=== PATIENT | male | born 1950 | race Caucasian/White ===

== ENCOUNTER 2016-08-30 10:19 | Inpatient (IN) | payer MEDICARE, MEDICAID ==
--- NOTE | 2016-08-30 10:34 | ER Document Report ---
ED Medical Screen (RME) - General Chief Complaint: Abdominal Pain Stated Complaint: ABDOMINAL PAIN Time seen by provider: 10:31 Mode of Arrival: Ambulatory Information source: Patient Notes: 66-year-old male presents to ED for upper abdominal pain that is heavy and keep any food down for 2 weeks off and on. Yesterday he was able to eat a piece of cheese and bread and that was all he was able to keep down. When pain is present it's very sharp pain is from the center of his upper abdomen to the right still has his gallbladder has a history of a stroke in 2012 in has a history of blood pressure and cholesterol smokes a pack a day I have greeted and performed a rapid initial assessment of this patient. A comprehensive ED assessment and evaluation of the patient, analysis of test results and completion of medical decision making process will be conducted by an additional ED providers. TRAVEL OUTSIDE OF THE [place] IN LAST 30 DAYS: No - Related Data Allergies/Adverse Reactions: aspirin [Aspirin] Allergy (Intermediate, Verified 07/31/13 17:09) codeine [Codeine] Allergy (Intermediate, Verified 07/31/13 17:09) Penicillins Allergy (Intermediate, Verified 07/31/13 17:09) Past Medical History - Social History Family history: None - Past Medical History Cardiac Medical History: Reports: Hx Hypercholesterolemia, Hx Hypertension Pulmonary Medical History: Reports: Hx COPD, Hx Pneumonia Neurological Medical History: Reports: Hx Cerebrovascular Accident - Immunizations Hx Diphtheria, Pertussis, Tetanus Vaccination: - unk
[2016-08-30 11:04] LABS: ABSOLUTE BASOPHILS # (AUTO) 0.1 10^3/uL (0.0-0.2); ABSOLUTE EOSINOPHILS # (AUTO) 0.3 10^3/uL (0.0-0.6); ABSOLUTE LYMPHOCYTES (AUTO) 1.3 10^3/uL (0.5-4.7); ABSOLUTE MONOCYTES (AUTO) 0.9 10^3/uL (0.1-1.4); ABSOLUTE NEUT (AUTO) 13.9 10^3/uL (1.7-8.2); BASOPHILS % (AUTO) 0.3 % (0-2); EOSINOPHILS % (AUTO) 1.8 % (0-6); HEMOGLOBIN 16.3 g/dL (13.5-17.0); HGB HCT DIFFERENCE -0.1; LYMPHOCYTES % (AUTO) 7.9 % (13-45); MEAN CORPUSCULAR HEMOGLOBIN 32.8 pg (27.0-33.4); MEAN CORPUSCULAR HGB CONC 33.3 g/dL (32.0-36.0); MEAN CORPUSCULAR VOLUME 99 fl (80-97); MONOCYTES % (AUTO) 5.6 % (3-13); RED BLOOD COUNT 4.98 10^6/uL (4.35-5.55); RED CELL DISTRIBUTION WIDTH 14.2 % (11.5-14.0); SEGMENTED NEUTROPHILS % (AUTO) 84.4 % (42-78); WHITE BLOOD COUNT 16.4 10^3/uL (4.0-10.5)
[2016-08-30 11:22] LABS: ALANINE AMINOTRANSFERASE 24 U/L (21-72); ALBUMIN 4.3 g/dL (3.5-5.0); ALKALINE PHOSPHATASE 118 U/L (38-126); ANION GAP 17 (5-19); ASPARTATE AMINO TRANSFERASE 18 U/L (17-59); BILIRUBIN,TOTAL 0.8 mg/dL (0.2-1.3); BLOOD UREA NITROGEN 36 mg/dL (7-20); CALCIUM 9.8 mg/dL (8.4-10.2); CARBON DIOXIDE 32 mmol/L (22-30); CHLORIDE 97 mmol/L (98-107); CREATINE KINASE 42 U/L (55-170); CREATININE RESULT 1.79 mg/dL (0.52-1.25); GLUCOSE 117 mg/dL (75-110); MAGNESIUM 2.1 mg/dL (1.6-2.3); POTASSIUM 3.9 mmol/L (3.6-5.0); SODIUM 145.6 mmol/L (137-145); TOTAL PROTEIN 7.2 g/dL (6.3-8.2)
--- NOTE | 2016-08-30 11:37 | ER Document Report ---
ED General - General Chief Complaint: Chest Pain Stated Complaint: ABDOMINAL PAIN Mode of Arrival: Ambulatory Notes: This is a 66-year-old male with history of COPD, CVA who presents complaining of 2 weeks of epigastric and right upper quadrant abdominal pain radiating into lower chest. It is associated with nausea and vomiting. He has been unable to keep down fluids. He had one bowel movement in the last 4 days which is described as normal, formed stool with no blood or mucus. He has not noticed any acholic stools. He has not noticed any changes in his urination. He does note a 20 pound weight loss. He normally is a daily drinker but has been unable to drink or smoke. TRAVEL OUTSIDE OF THE [place] IN LAST 30 DAYS: No - Related Data Allergies/Adverse Reactions: aspirin [Aspirin] Allergy (Intermediate, Verified 07/31/13 17:09) codeine [Codeine] Allergy (Intermediate, Verified 07/31/13 17:09) Penicillins Allergy (Intermediate, Verified 07/31/13 17:09) Past Medical History - General Information source: Patient - Social History Smoking Status: Current Every Day Smoker Frequency of alcohol use: Heavy Drug Abuse: None Lives with: Alone, Other - Accompanied by a friend in the ER Family History: Reviewed & Not Pertinent Patient has suicidal ideation: No Patient has homicidal ideation: No - Past Medical History Cardiac Medical History: Reports: Hx Hypercholesterolemia, Hx Hypertension Pulmonary Medical History: Reports: Hx COPD, Hx Pneumonia Neurological Medical History: Reports: Hx Cerebrovascular Accident Renal/ Medical History: Denies: Hx Peritoneal Dialysis - Immunizations Hx Diphtheria, Pertussis, Tetanus Vaccination: - unk Review of Systems - Review of Systems Constitutional: denies: Fever EENT: denies: Throat pain Cardiovascular: Chest pain. denies: Palpitations, Syncope Respiratory: Cough. denies: Short of breath Gastrointestinal: Abdominal pain, Nausea, Vomiting, Constipation. denies: Diarrhea Musculoskeletal: denies: Leg swelling Skin: denies: Rash Hematologic/Lymphatic: denies: Swollen glands Neurological/Psychological: denies: Weakness, Numbness, Tingling Physical Exam - Vital signs Vitals: Temp Pulse Resp BP Pulse Ox 97.3 F 74 16 114/71 97 08/30/16 10:31 08/30/16 10:31 08/30/16 10:31 08/30/16 10:31 08/30/16 10:31 - General General appearance: Alert, Other - Appears somewhat older than stated age In distress: None - HEENT Head: Normocephalic Pupils: PERRL Mouth/Lips: Normal Mucous membranes: Dry Pharynx: Normal Neck: Normal - Respiratory Respiratory status: No respiratory distress, Other - Prolonged expiratory phase Breath sounds: Other - Few scattered end expiratory wheezes, no rhonchi or rales Chest palpation: Normal - Cardiovascular Rhythm: Regular - Abdominal Inspection: Normal Bowel sounds: Normal Tenderness: Tender - Epigastric and right upper quadrant tenderness, positive hepatomegaly - Back Back: Normal - Extremities General upper extremity: Normal inspection General lower extremity: Normal inspection - Neurological Neuro grossly intact: Yes Orientation: AAOx4 Motor strength normal: LUE, RUE, LLE, RLE - Psychological Associated symptoms: Normal affect - Skin Skin Temperature: Warm Skin Moisture: Dry Skin Color: Normal Course - Re-evaluation Re-evalutation: 08/30/16 13:35 lipase significantly elevated. - Vital Signs Vital signs: Temp Pulse Resp BP Pulse Ox 97.3 F 74 24 H 139/83 H 97 08/30/16 10:31 08/30/16 10:31 08/30/16 13:39 08/30/16 12:53 08/30/16 13:39 - Laboratory Result Diagrams: 08/30/16 10:34 08/30/16 10:34 Laboratory results interpreted by me: 08/30/16 08/30/16 10:34 10:34 WBC 16.4 H MCV 99 H RDW 14.2 H Seg Neutrophils % 84.4 H Lymphocytes % 7.9 L Absolute Neutrophils 13.9 H Sodium 145.6 H Chloride 97 L Carbon Dioxide 32 H BUN 36 H Creatinine 1.79 H Est GFR ( Amer) 46 L Est GFR (Non-Af Amer) 38 L Glucose 117 H Creatine Kinase 42 L Lipase 2895.0 H Discharge - Discharge Clinical Impression: Multiple gallstones Acute pancreatitis Qualifiers: Pancreatitis type: unspecified pancreatitis type Acute pancreatitis complication: unspecified Qualified Code(s): K85.90 - Acute pancreatitis without necrosis or infection, unspecified Condition: Stable Disposition: ADMITTED INPATIENT Admitting Provider: Hospitalist Unit Admitted: [facility]
[2016-08-30] MEDS ORDERED: NORMAL SALINE 1000 ML 1,000 ML IV ONE (14:02)
[2016-08-30] MEDS ORDERED: CIPROFLOXACIN 400 MG/D5W RTU 200 ML IV ONE (14:08)
[2016-08-30] MEDS ORDERED: MORPHINE SULFATE 10 MG/ML INJ IV ONE (14:13)
[2016-08-30] MEDS ORDERED: ONDANSETRON HCL INJ/PF 4 MG/2 ML SDV IV ONE (14:13)
[2016-08-30] MEDS ORDERED: IPRATROPIUM/ALBUTEROL 0.5-2.5 MG/3 ML AMPUL NEB PRN (14:27)
[2016-08-30] MEDS ORDERED: ACETAMINOPHEN 325 MG TABLET PO PRN (14:27)
[2016-08-30] MEDS ORDERED: ONDANSETRON HCL INJ/PF 4 MG/2 ML SDV IV PRN (14:27)
[2016-08-30] MEDS ORDERED: HYDROMORPHONE HCL INJ/PF 2 MG/ML AMPULE IV PRN (14:37)
[2016-08-30] MEDS ORDERED: LORAZEPAM INJ 2 MG/1 ML VIAL IV PRN (14:42)
[2016-08-30] MEDS ORDERED: CIPROFLOXACIN 400 MG/D5W RTU 400 MG/200 ML RTUPB IV ONE (15:15)
--- NOTE | 2016-08-30 15:48 | EKG REPORT ---
SEVERITY:- OTHERWISE NORMAL ECG - SINUS RHYTHM VENTRICULAR PREMATURE COMPLEX : Confirmed by: Stephie Romero 30-Aug-2016 15:47:09
--- NOTE | 2016-08-30 16:37 | PDOC H&P ---
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 He presents to [facility] ED this afternoon with complaints of nausea vomiting and worsening of abdominal pain for the last 2 weeks. He states he was seen by his primary care provider approximately one week ago for the same complaint. He had lab work drawn and no change in medications. He is unaware of what the lab work revealed. Continues to have worsening epigastric pain, anorexia, and vomiting. He denies any diarrhea. Had one normal bowel movement 2 days ago which was formed, he denies any acholic stools. He states his urine has become darker he has noticed. He states he has lost approximately 20 pounds in the last 2 weeks. He states he normally drinks 1-2 cocktails per night. He has been unable to drink or smoke the last several days because of feeling so poorly. He describes pain as sharp and stabbing in nature. He has not found anything to relieve the pain. His friend convinced him to come to the ED today. Past Medical History Cardiac Medical History: Reports: Hyperlipidema, Hypertension Pulmonary Medical History: Reports: Chronic Obstructive Pulmonary Disease (COPD) , Pneumonia EENT Medical History: Reports: None Neurological Medical History: Reports: Ischemic CVA Endocrine Medical History: Reports: None Renal/ Medical History: Reports: None Malignancy Medical History: Reports: None GI Medical History: Reports: None Skin Medical History: Reports: None Psychiatric Medical History: Reports: Alcohol Dependency, Tobacco Dependency Traumatic Medical History: Reports: None Hematology: Reports: None Past Surgical History Past Surgical History: Reports: None Social History Lives with: Alone, Other - Accompanied by a friend in the ER Smoking Status: Current Every Day Smoker Cigarettes Packs Per Day: 1 Last Time Smoked: yesterday Frequency of Alcohol Use: Heavy Amount of Alcoholic Beverages Per Day: 2 mixed drinks per evening, used to have heavy alcohol intake Last Alcohol Use: 09/03/16 Hx Recreational Drug Use: No - Advance Directive Resuscitation Status: Full Code Family History Family History: Hyperlipidemia, Hypertension, Malignancy Parental Family History Reviewed: Yes Children Family History Reviewed: Yes Sibling(s) Family History Reviewed.: Yes Medication/Allergy Home Medications: Clopidogrel Bisulfate [Plavix 75 mg Tablet] 75 mg PO DAILY #0 tablet 09/15/12 Lisinopril [Prinivil 10 mg Tablet] 40 mg PO DAILY #0 tablet 09/15/12 Pravastatin Sodium [Pravachol] 20 mg PO DAILY #0 tablet 09/15/12 Albuterol Sulfate [Ventolin Hfa] 2 puff IH Q4HP PRN #17 gm 07/31/13 Azithromycin [Zithromax 250 mg Tablet] 250 mg PO DAILY #4 tablet 07/31/13 Prednisone [Deltasone 20 mg Tablet] 40 mg PO DAILY #10 tablet 07/31/13 Allergies/Adverse Reactions: aspirin [Aspirin] Allergy (Intermediate, Verified 07/31/13 17:09) codeine [Codeine] Allergy (Intermediate, Verified 07/31/13 17:09) Penicillins Allergy (Intermediate, Verified 07/31/13 17:09) Review of Systems Constitutional: PRESENT: anorexia, weakness Eyes: ABSENT: visual disturbances Ears: ABSENT: hearing changes Cardiovascular: ABSENT: chest pain, dyspnea on exertion, edema, orthropnea, palpitations Respiratory: ABSENT: cough, hemoptysis Gastrointestinal: PRESENT: abdominal pain, bloating, nausea, vomiting Genitourinary: ABSENT: dysuria, hematuria Musculoskeletal: ABSENT: joint swelling Integumentary: ABSENT: rash, wounds Neurological: ABSENT: abnormal gait, abnormal speech, confusion, dizziness, focal weakness, syncope Psychiatric: ABSENT: anxiety, depression, homidical ideation, suicidal ideation Endocrine: ABSENT: cold intolerance, heat intolerance, polydipsia, polyuria Hematologic/Lymphatic: ABSENT: easy bleeding, easy bruising Physical Exam Vital Signs: Temp Pulse Resp BP Pulse Ox 97.3 F 65 14 139/83 H 97 08/30/16 10:31 08/30/16 16:02 08/30/16 16:02 08/30/16 12:53 08/30/16 16:02 General appearance: PRESENT: no acute distress, disheveled, well-developed, well -nourished Head exam: PRESENT: atraumatic, normocephalic Eye exam: PRESENT: conjunctiva pale Ear exam: PRESENT: normal external ear exam Mouth exam: PRESENT: moist, tongue midline Neck exam: ABSENT: carotid bruit, JVD, lymphadenopathy, thyromegaly Respiratory exam: PRESENT: clear to auscultation david. ABSENT: rales, rhonchi, wheezes Cardiovascular exam: PRESENT: RRR. ABSENT: diastolic murmur, rubs, systolic murmur Pulses: PRESENT: normal dorsalis pedis pul Vascular exam: PRESENT: normal capillary refill GI/Abdominal exam: PRESENT: normal bowel sounds, soft. ABSENT: distended, guarding, mass, organolmegaly, rebound, tenderness Rectal exam: PRESENT: deferred Extremities exam: PRESENT: full ROM. ABSENT: calf tenderness, clubbing, pedal edema Neurological exam: PRESENT: alert, awake, oriented to person, oriented to place , oriented to time, oriented to situation, CN II-XII grossly intact. ABSENT: motor sensory deficit Psychiatric exam: PRESENT: appropriate affect, normal mood. ABSENT: homicidal ideation, suicidal ideation Skin exam: PRESENT: dry, intact, warm. ABSENT: cyanosis, rash Results Impressions: Chest X-Ray 08/30/16 10:35 IMPRESSION: Overexpansion the lung sev[place] concerning for COPD. No developing infiltrates. Abdomen Ultrasound 08/30/16 11:30 IMPRESSION: Cholelithiasis. Dilated common bile duct 8.6 mm. Assessment & Plan - Diagnosis (1) Acute pancreatitis Qualifiers: Pancreatitis type: unspecified pancreatitis type Acute pancreatitis complication: unspecified Qualified Code(s): K85.90 - Acute pancreatitis without necrosis or infection, unspecified Is this a current diagnosis for this admission?: YesPlan: Patient will be kept NPO. Aggressively rehydrated. MRCP will be obtained. IV antibiotics per surgialist. Pain control with IV dilaudid prn. IV zofran for nausea and vomiting. (2) Gallstones Is this a current diagnosis for this admission?: YesPlan: Gallbladder noted to be filled with gallstones on ultrasound with mild dilatation of pancreatic duct. Dr Sage saw the patient in consult of ED physician and does not feel patient needs an ERCP. Will follow. (3) Old cerebrovascular accident without late effect Is this a current diagnosis for this admission?: YesPlan: Patient with history of left CVA 2013. No residual effects. On Plavix due to aspirin allergy (4) COPD (chronic obstructive pulmonary disease) Qualifiers: Emphysema type: unspecified Is this a current diagnosis for this admission?: YesPlan: Nebulizers prn. He does not use any scheduled inhalers (5) Tobacco abuse Is this a current diagnosis for this admission?: YesPlan: Nicotine patch prn. Patient counseled on tobacco cessation needs. He is aware (6) Alcohol abuse Is this a current diagnosis for this admission?: YesPlan: Patient states he does not drink more than 1-2 drinks daily. He admits to previous years of heavy alcohol abuse. Will monitor for possible DTs (7) DVT prophylaxis Is this a current diagnosis for this admission?: YesPlan: Teds, heparin subcutanous - Time Time Spent: 50 to 70 Minutes Critical Time spent with patient: 25-34 minutes Smoking Cessation Education: 3 to 10 minutes Medications reviewed and adjusted accordingly: Yes Anticipated discharge: Home
[2016-08-30] MEDS: 1/2 NORMAL SALINE 1,000 ML IV PRN (18:00)
[2016-08-30] MEDS: METRONIDAZOLE 500 MG/NS RTU 100 ML IV SCH (18:15)
--- NOTE | 2016-08-30 18:50 | PDOC CONSULTATION ---
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 He presents to [facility] ED this afternoon with complaints of nausea vomiting and worsening of abdominal pain for the last 2 weeks. He states he was seen by his primary care provider approximately one week ago for the same complaint. He had lab work drawn and no change in medications. He is unaware of what the lab work revealed. Continues to have worsening epigastric pain, anorexia, and vomiting. He denies any diarrhea. Had one normal bowel movement 2 days ago which was formed, he denies any acholic stools. He states his urine has become darker he has noticed. He states he has lost approximately 20 pounds in the last 2 weeks. He states he normally drinks 1-2 cocktails per night. He has been unable to drink or smoke the last several days because of feeling so poorly. He describes pain as sharp and stabbing in nature. He has not found anything to relieve the pain. His friend convinced him to come to the ED today. Surgeon's note: The patient approximately 1:00 today. Patient had no evidence of an acute abdomen. Reviewed imaging studies with Dr. Delgado. I felt clinically the patient was suffering from alcohol related pancreatitis although component of cholecystitis could not be excluded . Past Medical History Cardiac Medical History: Reports: Hyperlipidema, Hypertension Pulmonary Medical History: Reports: Chronic Obstructive Pulmonary Disease (COPD) , Pneumonia EENT Medical History: Reports: None Neurological Medical History: Reports: Ischemic CVA Endocrine Medical History: Reports: None Renal/ Medical History: Reports: None Malignancy Medical History: Reports: None GI Medical History: Reports: None Skin Medical History: Reports: None Psychiatric Medical History: Reports: Alcohol Dependency, Tobacco Dependency Traumatic Medical History: Reports: None Hematology: Reports: None Past Surgical History Past Surgical History: Reports: None, Other - No apparent colonoscopy by report Social History Lives with: Alone, Other - Accompanied by a friend in the ER Smoking Status: Current Every Day Smoker Cigarettes Packs Per Day: 1 Last Time Smoked: yesterday Frequency of Alcohol Use: Heavy Hx Recreational Drug Use: No - Advance Directive Resuscitation Status: Full Code Family History Family History: Reviewed & Not Pertinent Parental Family History Reviewed: Yes Children Family History Reviewed: Yes Sibling(s) Family History Reviewed.: Yes Medication/Allergy Home Medications: Albuterol Sulfate [Ventolin Hfa] 2 puff IH Q4HP PRN 08/30/16 Carvedilol [Carvedilol] 50 mg PO Q12 08/30/16 Clopidogrel Bisulfate [Clopidogrel] 75 mg PO DAILY 08/30/16 Lisinopril [Lisinopril] 40 mg PO DAILY 08/30/16 Pravastatin Sodium [Pravachol] 40 mg PO QHS 08/30/16 Allergies/Adverse Reactions: aspirin [Aspirin] Allergy (Intermediate, Verified 07/31/13 17:09) codeine [Codeine] Allergy (Intermediate, Verified 07/31/13 17:09) Penicillins Allergy (Intermediate, Verified 07/31/13 17:09) Review of Systems Constitutional: PRESENT: as per HPI Nose, Mouth, and Throat: PRESENT: mouth pain Respiratory: PRESENT: dyspnea Neurological: PRESENT: focal weakness, other - Left side Physical Exam Vital Signs: Temp Pulse Resp BP Pulse Ox 97.3 F 65 21 H 125/65 97 08/30/16 10:31 08/30/16 16:02 08/30/16 17:01 08/30/16 17:01 08/30/16 16:02 General appearance: PRESENT: no acute distress Head exam: PRESENT: normocephalic Eye exam: PRESENT: EOMI Ear exam: PRESENT: normal external ear exam Neck exam: PRESENT: full ROM Respiratory exam: PRESENT: clear to auscultation david Cardiovascular exam: PRESENT: RRR Pulses: PRESENT: normal carotid pulses GI/Abdominal exam: PRESENT: other - Some tenderness in the epigastric and right upper quadrant regions; no peritoneal signs no rigidity; I can feel the right lobe of the liver. Rectal exam: PRESENT: deferred Extremities exam: PRESENT: other - No edema Neurological exam: PRESENT: other - Left-sided weakness Results Impressions: Chest X-Ray 08/30/16 10:35 IMPRESSION: Overexpansion the lung sevilla concerning for COPD. No developing infiltrates. Abdomen Ultrasound 08/30/16 11:30 IMPRESSION: Cholelithiasis. Dilated common bile duct 8.6 mm. Assessment & Plan - Diagnosis (1) Acute pancreatitis Qualifiers: Pancreatitis type: unspecified pancreatitis type Acute pancreatitis complication: unspecified Qualified Code(s): K85.90 - Acute pancreatitis without necrosis or infection, unspecified Is this a current diagnosis for this admission?: YesPlan: 1. I believe the patient's current symptoms are related to alcohol-induced pancreatitis. Plans for admission, IV fluids, nothing by mouth status pain medication and prophylactic antibiotics are appropriate. 2. A bladder ultrasound confirms gallstones. Consideration for eventual cholecystectomy will be made once patient's cryptitis subsides. 3. I did discuss the patient's ultrasonographic interpretation of the 3.6 mm pancreatic duct which is on the upper limits of normal. Common bile duct is enlarged but may be related to age. Further evaluation using CT dedicated to the hepatobiliary tree or MRCP may be considered but not immediately necessary. 4. Discussed the above with Dr. Guillory who agrees to admit the patient - Time Time Spent: 30 to 50 Minutes Critical Time spent with patient: 15-24 minutes Medications reviewed and adjusted accordingly: Yes
[2016-08-30] MEDS ORDERED: CIPROFLOXACIN 400 MG/D5W RTU 200 ML IV SCH (22:00)
[2016-08-30] MEDS ORDERED: FAMOTIDINE INJ/PF 20 MG/2 ML SDV IV SCH (22:00)
[2016-08-30] MEDS: HEPARIN SOD (PORCINE) 5,000 UNIT/ML 1 ML SYRINGE SUBCUT SCH (23:44)
[2016-08-31] MEDS: METRONIDAZOLE 500 MG/NS RTU 100 ML IV SCH ×5 (01:49→23:22)
[2016-08-31] MEDS: 1/2 NORMAL SALINE 1,000 ML IV PRN ×4 (01:50→23:23)
[2016-08-31] MEDS: HYDROMORPHONE HCL INJ/PF 2 MG/ML AMPULE IV PRN ×2 (03:53→09:43)
[2016-08-31] MEDS ORDERED: CIPROFLOXACIN 400 MG/D5W RTU 400 MG/200 ML RTUPB IV ONE (04:00)
[2016-08-31 04:46] LABS: ABSOLUTE EOSINOPHILS # (AUTO) 0.1 10^3/uL (0.0-0.6); ABSOLUTE LYMPHOCYTES (AUTO) 1.2 10^3/uL (0.5-4.7); ABSOLUTE MONOCYTES (AUTO) 0.8 10^3/uL (0.1-1.4); ABSOLUTE NEUT (AUTO) 12.1 10^3/uL (1.7-8.2); BASOPHILS % (AUTO) 0.3 % (0-2); EOSINOPHILS % (AUTO) 0.5 % (0-6); HEMATOCRIT 45.4 % (37.9-51.0); HEMOGLOBIN 15.1 g/dL (13.5-17.0); HGB HCT DIFFERENCE -0.1; LYMPHOCYTES % (AUTO) 8.3 % (13-45); MEAN CORPUSCULAR HGB CONC 33.4 g/dL (32.0-36.0); MEAN CORPUSCULAR VOLUME 99 fl (80-97); MONOCYTES % (AUTO) 5.6 % (3-13); RED BLOOD COUNT 4.59 10^6/uL (4.35-5.55); RED CELL DISTRIBUTION WIDTH 14.5 % (11.5-14.0); SEGMENTED NEUTROPHILS % (AUTO) 85.3 % (42-78); WHITE BLOOD COUNT 14.2 10^3/uL (4.0-10.5)
[2016-08-31 05:03] LABS: ALANINE AMINOTRANSFERASE 122 U/L (21-72); ALBUMIN 3.5 g/dL (3.5-5.0); ALKALINE PHOSPHATASE 246 U/L (38-126); ANION GAP 15 (5-19); ASPARTATE AMINO TRANSFERASE 130 U/L (17-59); BILIRUBIN,TOTAL 0.6 mg/dL (0.2-1.3); BLOOD UREA NITROGEN 34 mg/dL (7-20); CALCIUM 8.9 mg/dL (8.4-10.2); CARBON DIOXIDE 29 mmol/L (22-30); CHLORIDE 100 mmol/L (98-107); CHOLESTEROL 96.95 mg/dL (0-200); CREATININE RESULT 1.47 mg/dL (0.52-1.25); Direct HDL 24 mg/dL (>40); GLUCOSE 88 mg/dL (75-110); PHOSPHORUS 3.3 mg/dL (2.5-4.5); POTASSIUM 3.9 mmol/L (3.6-5.0); SODIUM 143.7 mmol/L (137-145); TOTAL PROTEIN 6.2 g/dL (6.3-8.2); TRIGLYCERIDES 81 mg/dL (<150)
[2016-08-31 05:14] LABS: DIRECT LDL 55 mg/dL (<100)
[2016-08-31] MEDS: HEPARIN SOD (PORCINE) 5,000 UNIT/ML 1 ML SYRINGE SUBCUT SCH ×3 (06:13→22:33)
[2016-08-31] MEDS ORDERED: ONDANSETRON HCL INJ/PF 4 MG/2 ML SDV IV PRN (08:54)
--- NOTE | 2016-08-31 09:02 | PDOC PROGRESS REPORT ---
Subjective Progress Note for:: 08/31/16 Subjective:: The patient feels his symptoms are completely the same as a comparison to yesterday. The patient admits to persistent nausea as well as epigastric pain. The patient has not had any actual vomiting diarrhea overnight. The patient asked for nicotine patch. Have been no reported episodes of diarrhea. Physical Exam Vital Signs: Temp Pulse Resp BP Pulse Ox 97.6 F 56 L 18 147/82 H 100 08/31/16 07:43 08/31/16 07:43 08/31/16 07:43 08/31/16 07:43 08/31/16 07:43 Intake & Output 08/29/16 08/30/16 08/31/16 23:59 23:59 23:59 Intake Total 806 Output Total 200 Balance 606 Weight 74.5 kg General appearance: PRESENT: no acute distress, well-developed, well-nourished Head exam: PRESENT: atraumatic, normocephalic Eye exam: PRESENT: conjunctiva pink, EOMI, PERRLA. ABSENT: scleral icterus Ear exam: PRESENT: normal external ear exam Mouth exam: PRESENT: moist, tongue midline Neck exam: ABSENT: carotid bruit, JVD, lymphadenopathy, thyromegaly Respiratory exam: PRESENT: clear to auscultation david. ABSENT: rales, rhonchi, wheezes Cardiovascular exam: PRESENT: RRR. ABSENT: diastolic murmur, rubs, systolic murmur Pulses: PRESENT: normal dorsalis pedis pul Vascular exam: PRESENT: normal capillary refill GI/Abdominal exam: PRESENT: firm, normal bowel sounds, soft, tenderness. ABSENT : distended, guarding, mass, organolmegaly, rebound Rectal exam: PRESENT: deferred Extremities exam: PRESENT: full ROM. ABSENT: calf tenderness, clubbing, pedal edema Neurological exam: PRESENT: alert, awake, oriented to person, oriented to place , oriented to time, oriented to situation, CN II-XII grossly intact. ABSENT: motor sensory deficit Psychiatric exam: PRESENT: appropriate affect, normal mood. ABSENT: homicidal ideation, suicidal ideation Skin exam: PRESENT: dry, intact, warm. ABSENT: cyanosis, rash Results Laboratory Results: 08/31/16 03:33 08/31/16 03:33 08/31/16 08/31/16 03:33 03:33 WBC 14.2 H RBC 4.59 Hgb 15.1 Hct 45.4 MCV 99 H MCH 33.0 MCHC 33.4 RDW 14.5 H Plt Count 191 Seg Neutrophils % 85.3 H Lymphocytes % 8.3 L Monocytes % 5.6 Eosinophils % 0.5 Basophils % 0.3 Absolute Neutrophils 12.1 H Absolute Lymphocytes 1.2 Absolute Monocytes 0.8 Absolute Eosinophils 0.1 Absolute Basophils 0.0 Sodium 143.7 Potassium 3.9 Chloride 100 Carbon Dioxide 29 Anion Gap 15 BUN 34 H Creatinine 1.47 H Est GFR ( Amer) 58 L Est GFR (Non-Af Amer) 48 L Glucose 88 Calcium 8.9 Phosphorus 3.3 Magnesium 2.0 Total Bilirubin 0.6 AST 130 H ALT 122 H Alkaline Phosphatase 246 H Total Protein 6.2 L Albumin 3.5 Triglycerides 81 Cholesterol 96.95 LDL Cholesterol Direct 55 VLDL Cholesterol 16.0 HDL Cholesterol 24 L Lipase 2111.0 H Impressions: Chest X-Ray 08/30/16 10:35 IMPRESSION: Overexpansion the lung se[place] concerning for COPD. No developing infiltrates. Abdomen Ultrasound 08/30/16 11:30 IMPRESSION: Cholelithiasis. Dilated common bile duct 8.6 mm. Assessment & Plan - Diagnosis (1) Abnormal LFTs Is this a current diagnosis for this admission?: YesPlan: This is changed in comparison to yesterday. Given the patient's persistent symptoms will obtain MRCP. Further management to follow. (2) Gallstones Is this a current diagnosis for this admission?: YesPlan: Even persistent symptoms and elevation of LFTs will obtain MRCP. Do appreciate surgery input. (3) Acute pancreatitis Qualifiers: Pancreatitis type: unspecified pancreatitis type Acute pancreatitis complication: unspecified Qualified Code(s): K85.90 - Acute pancreatitis without necrosis or infection, unspecified Is this a current diagnosis for this admission?: YesPlan: Lipase has improved. Will continue to aggressively hydrate as well as maintain nothing by mouth status. May be secondary to #2. (4) Alcohol abuse Is this a current diagnosis for this admission?: YesPlan: Questionable dependency. Will continue when necessary benzodiazepines. (5) COPD (chronic obstructive pulmonary disease) Qualifiers: Emphysema type: unspecified Is this a current diagnosis for this admission?: YesPlan: Will continue home medications. (6) Old cerebrovascular accident without late effect Is this a current diagnosis for this admission?: Yes (7) Tobacco dependency Is this a current diagnosis for this admission?: YesPlan: Spent 3 minutes discussing smoking cessation education. The patient declines any pharmacological intervention at this time however will add a PRN nicotine patch. (8) DVT prophylaxis Is this a current diagnosis for this admission?: YesPlan: Continue subcutaneous heparin - Time Time Spent with patient: on this visit including assessment, plan, physical examination, and patient education is 25 minutes. Time Spent with patient: 25-34 minutes Medications reviewed and adjusted accordingly: Yes Anticipated discharge: Home Within: within 48 hours Disposition: The patient is a full code. Pending patient's symptomatology and diagnostic findings will reevaluate in the a.m.
[2016-08-31] MEDS ORDERED: PANTOPRAZOLE SODIUM 40 MG VIAL IV ONE (09:30)
[2016-08-31] MEDS ORDERED: ONDANSETRON HCL INJ/PF 4 MG/2 ML SDV IV ONE (09:30)
[2016-08-31] MEDS: NICOTINE 21 MG/24 HR PATCH.TD24 TD SCH (09:42)
[2016-08-31] MEDS: FAMOTIDINE INJ/PF 20 MG/2 ML SDV IV SCH ×2 (11:40→23:22)
[2016-08-31] MEDS: PANTOPRAZOLE SODIUM 40 MG VIAL IV SCH (17:01)
[2016-08-31] MEDS: CIPROFLOXACIN 400 MG/D5W RTU 400 MG/200 ML RTUPB IV SCH (17:01)
--- NOTE | 2016-08-31 18:25 | PDOC PROGRESS REPORT ---
Subjective Progress Note for:: 08/31/16 Subjective:: Reports nausea, emesis earlier. Still has abdominal pain. Reports no BM. Denies fevers or chills. Physical Exam Vital Signs: Temp Pulse Resp BP Pulse Ox 97.5 F 67 16 153/84 H 100 08/31/16 15:22 08/31/16 15:22 08/31/16 15:22 08/31/16 15:22 08/31/16 15:22 Intake & Output 08/30/16 08/31/16 09/01/16 06:59 06:59 06:59 Intake Total 806 1858 Output Total 200 650 Balance 606 1208 Weight 74.5 kg General appearance: PRESENT: no acute distress, other - Makes a repetitive chewing/'gum'ing motion suggestive of a neuro deficit/extrapyramidal symptoms Eye exam: PRESENT: EOMI Teeth exam: PRESENT: edentulous Respiratory exam: PRESENT: other - Course lungs bilaterally GI/Abdominal exam: PRESENT: soft, tenderness - Tender across the upper abdomen, more so over the head of the pancreas. No Mcleod sign. + Bowel sounds.. ABSENT: distended, Mcleod's sign Neurological exam: PRESENT: alert, oriented to situation Skin exam: ABSENT: jaundice Results Laboratory Results: 08/31/16 03:33 08/31/16 03:33 08/31/16 08/31/16 03:33 03:33 WBC 14.2 H RBC 4.59 Hgb 15.1 Hct 45.4 MCV 99 H MCH 33.0 MCHC 33.4 RDW 14.5 H Plt Count 191 Seg Neutrophils % 85.3 H Lymphocytes % 8.3 L Monocytes % 5.6 Eosinophils % 0.5 Basophils % 0.3 Absolute Neutrophils 12.1 H Absolute Lymphocytes 1.2 Absolute Monocytes 0.8 Absolute Eosinophils 0.1 Absolute Basophils 0.0 Sodium 143.7 Potassium 3.9 Chloride 100 Carbon Dioxide 29 Anion Gap 15 BUN 34 H Creatinine 1.47 H Est GFR ( Amer) 58 L Est GFR (Non-Af Amer) 48 L Glucose 88 Calcium 8.9 Phosphorus 3.3 Magnesium 2.0 Total Bilirubin 0.6 AST 130 H ALT 122 H Alkaline Phosphatase 246 H Total Protein 6.2 L Albumin 3.5 Triglycerides 81 Cholesterol 96.95 LDL Cholesterol Direct 55 VLDL Cholesterol 16.0 HDL Cholesterol 24 L Lipase 2111.0 H Impressions: Chest X-Ray 08/30/16 10:35 IMPRESSION: Overexpansion the lung sev[place] concerning for COPD. No developing infiltrates. Abdomen Ultrasound 08/30/16 11:30 IMPRESSION: Cholelithiasis. Dilated common bile duct 8.6 mm. Assessment & Plan - Diagnosis (1) Acute pancreatitis Qualifiers: Pancreatitis type: unspecified pancreatitis type Acute pancreatitis complication: unspecified Qualified Code(s): K85.90 - Acute pancreatitis without necrosis or infection, unspecified Is this a current diagnosis for this admission?: YesPlan: Lipase is still elevated at 2111. Patient reveals that he currently smokes one pack a day, down from 4 packs per day. Drinks one half a fifth of alcohol daily. Despite a slightly dilated common bile duct, his bilirubins are within normal limits, he does not have Mcleod sign, and he is not jaundiced. This would lean towards alcohol pancreatitis. MRCP is being done. If he has choledocholithiasis, he should be transferred to tertiary facility where ERCP capable gastroenterologists is available. If he is being considered for laparoscopic cholecystectomy, he should be transferred to tertiary care center given his extensive comorbidities. He is a poor surgical candidate. General surgery will sign off. Please reconsult as needed. (2) Alcohol abuse Is this a current diagnosis for this admission?: Yes (3) COPD (chronic obstructive pulmonary disease) Qualifiers: Emphysema type: unspecified Is this a current diagnosis for this admission?: Yes (4) Gallstones Is this a current diagnosis for this admission?: Yes (5) Tobacco dependency Is this a current diagnosis for this admission?: Yes
[2016-09-01] MEDS: HYDROMORPHONE HCL INJ/PF 2 MG/ML AMPULE IV PRN (00:38)
[2016-09-01 04:41] LABS: ABSOLUTE LYMPHOCYTES (AUTO) 0.8 10^3/uL (0.5-4.7); ABSOLUTE MONOCYTES (AUTO) 0.9 10^3/uL (0.1-1.4); ABSOLUTE NEUT (AUTO) 12.2 10^3/uL (1.7-8.2); BASOPHILS % (AUTO) 0.3 % (0-2); EOSINOPHILS % (AUTO) 0.2 % (0-6); HEMATOCRIT 40.7 % (37.9-51.0); HEMOGLOBIN 13.5 g/dL (13.5-17.0); HGB HCT DIFFERENCE -0.2; LYMPHOCYTES % (AUTO) 5.8 % (13-45); MEAN CORPUSCULAR HEMOGLOBIN 32.8 pg (27.0-33.4); MEAN CORPUSCULAR HGB CONC 33.1 g/dL (32.0-36.0); MEAN CORPUSCULAR VOLUME 99 fl (80-97); MONOCYTES % (AUTO) 6.2 % (3-13); RED CELL DISTRIBUTION WIDTH 14.3 % (11.5-14.0); SEGMENTED NEUTROPHILS % (AUTO) 87.5 % (42-78)
[2016-09-01 04:55] LABS: ALANINE AMINOTRANSFERASE 172 U/L (21-72); ALBUMIN 2.8 g/dL (3.5-5.0); ALKALINE PHOSPHATASE 352 U/L (38-126); ANION GAP 12 (5-19); ASPARTATE AMINO TRANSFERASE 189 U/L (17-59); BILIRUBIN,TOTAL 0.6 mg/dL (0.2-1.3); BLOOD UREA NITROGEN 26 mg/dL (7-20); CALCIUM 8.4 mg/dL (8.4-10.2); CARBON DIOXIDE 25 mmol/L (22-30); CHLORIDE 102 mmol/L (98-107); CREATININE RESULT 1.33 mg/dL (0.52-1.25); GLUCOSE 85 mg/dL (75-110); LIPASE 964.3 U/L (23-300); POTASSIUM 3.9 mmol/L (3.6-5.0); SODIUM 139.3 mmol/L (137-145); TOTAL PROTEIN 5.3 g/dL (6.3-8.2)
[2016-09-01] MEDS: PANTOPRAZOLE SODIUM 40 MG VIAL IV SCH ×2 (05:45→17:12)
[2016-09-01] MEDS: HEPARIN SOD (PORCINE) 5,000 UNIT/ML 1 ML SYRINGE SUBCUT SCH ×3 (05:45→22:03)
[2016-09-01] MEDS: CIPROFLOXACIN 400 MG/D5W RTU 400 MG/200 ML RTUPB IV SCH ×2 (05:46→17:12)
[2016-09-01] MEDS: METRONIDAZOLE 500 MG/NS RTU 100 ML IV SCH ×4 (05:46→23:40)
[2016-09-01] MEDS: 1/2 NORMAL SALINE 1,000 ML IV PRN (09:02)
[2016-09-01] MEDS: NICOTINE 21 MG/24 HR PATCH.TD24 TD SCH (09:04)
[2016-09-01] MEDS ORDERED: CARVEDILOL 50 MG PO SCH (11:15)
[2016-09-01] MEDS ORDERED: LISINOPRIL 10 MG TABLET PO SCH (12:00)
[2016-09-01] MEDS ORDERED: CLOPIDOGREL BISULFATE 75 MG TABLET PO SCH (12:00)
[2016-09-01] MEDS ORDERED: CARVEDILOL 12.5 MG TABLET PO ONE (12:00)
[2016-09-01] MEDS: FAMOTIDINE INJ/PF 20 MG/2 ML SDV IV SCH ×2 (12:01→23:41)
--- NOTE | 2016-09-01 14:47 | PDOC PROGRESS REPORT ---
Subjective Progress Note for:: 09/01/16 Subjective:: The patient was seen earlier today on rounds. The patient states that he feels he is his old self. The patient also admits to being hungry. The patient denies any nausea, vomiting, diarrhea, shortness of breath, dizziness, chest pain, heart palpitations, fevers, or chills. The patient has remained afebrile. Blood pressures have been in a good range. When prompted the patient voices no other concerns at this time. Review of systems: The rest of the review of systems is negative. Physical Exam Vital Signs: Temp Pulse Resp BP Pulse Ox 97.7 F 70 20 166/80 H 100 09/01/16 07:29 09/01/16 08:52 09/01/16 07:29 09/01/16 07:29 09/01/16 07:29 Intake & Output 08/30/16 08/31/16 09/01/16 23:59 23:59 23:59 Intake Total 2664 2079 Output Total 850 400 Balance 1814 1679 Weight 74.5 kg 76.9 kg General appearance: PRESENT: no acute distress, cooperative, well-developed, well-nourished Head exam: PRESENT: atraumatic, normocephalic Eye exam: PRESENT: conjunctiva pink, EOMI, PERRLA. ABSENT: scleral icterus Ear exam: PRESENT: normal external ear exam Mouth exam: PRESENT: moist, tongue midline Neck exam: ABSENT: carotid bruit, JVD, lymphadenopathy, thyromegaly Respiratory exam: PRESENT: clear to auscultation david, symmetrical, unlabored. ABSENT: rales, rhonchi, tachypnea, wheezes Cardiovascular exam: PRESENT: RRR. ABSENT: diastolic murmur, rubs, systolic murmur Pulses: PRESENT: normal dorsalis pedis pul Vascular exam: PRESENT: normal capillary refill GI/Abdominal exam: PRESENT: normal bowel sounds, soft. ABSENT: distended, guarding, mass, organolmegaly, rebound, tenderness Rectal exam: PRESENT: deferred Extremities exam: PRESENT: full ROM. ABSENT: calf tenderness, clubbing, pedal edema Neurological exam: PRESENT: alert, awake, oriented to person, oriented to place , oriented to time, oriented to situation, CN II-XII grossly intact. ABSENT: motor sensory deficit Psychiatric exam: PRESENT: appropriate affect, normal mood. ABSENT: homicidal ideation, suicidal ideation Skin exam: PRESENT: dry, intact, warm. ABSENT: cyanosis, rash Results Laboratory Results: 09/01/16 03:33 09/01/16 03:33 09/01/16 09/01/16 03:33 03:33 WBC 14.0 H RBC 4.10 L Hgb 13.5 Hct 40.7 MCV 99 H MCH 32.8 MCHC 33.1 RDW 14.3 H Plt Count 160 Seg Neutrophils % 87.5 H Lymphocytes % 5.8 L Monocytes % 6.2 Eosinophils % 0.2 Basophils % 0.3 Absolute Neutrophils 12.2 H Absolute Lymphocytes 0.8 Absolute Monocytes 0.9 Absolute Eosinophils 0.0 Absolute Basophils 0.0 Sodium 139.3 Potassium 3.9 Chloride 102 Carbon Dioxide 25 Anion Gap 12 BUN 26 H Creatinine 1.33 H Est GFR ( Amer) > 60 Est GFR (Non-Af Amer) 54 L Glucose 85 Calcium 8.4 Total Bilirubin 0.6 AST 189 H ALT 172 H Alkaline Phosphatase 352 H Total Protein 5.3 L Albumin 2.8 L Lipase 964.3 H Impressions: Chest X-Ray 08/30/16 10:35 IMPRESSION: Overexpansion the lung sev[place] concerning for COPD. No developing infiltrates. Abdomen Ultrasound 08/30/16 11:30 IMPRESSION: Cholelithiasis. Dilated common bile duct 8.6 mm. Abdomen MRI 08/31/16 00:00 IMPRESSION: 1. Cholelithiasis. Intra and extrahepatic ductal distention. Common duct diameter measures 1.0 cm. 2. Nonspecific prominence of the pancreatic head and duodenum based on limited imaging ; cannot exclude neoplasm. 3. Prominence of the thoracoabdominal aorta measuring up to 4.3- cm in diameter. Assessment & Plan - Diagnosis (1) Abnormal LFTs Is this a current diagnosis for this admission?: YesPlan: Will repeat in the a.m. the patient's bilirubin is normal. (2) Gallstones Is this a current diagnosis for this admission?: YesPlan: Symptoms have resolved at this time. Do appreciate surgery's input. (3) Acute pancreatitis Qualifiers: Pancreatitis type: unspecified pancreatitis type Acute pancreatitis complication: unspecified Qualified Code(s): K85.90 - Acute pancreatitis without necrosis or infection, unspecified Is this a current diagnosis for this admission?: YesPlan: Lipase has improved significantly. The patient symptoms have completely resolved. Will start the patient on a fat-free clear liquids and repeat lipase in the a.m. (4) Alcohol abuse Is this a current diagnosis for this admission?: YesPlan: Questionable dependency. Will continue when necessary benzodiazepines. (5) COPD (chronic obstructive pulmonary disease) Qualifiers: Emphysema type: unspecified Is this a current diagnosis for this admission?: YesPlan: Will continue home medications. (6) Old cerebrovascular accident without late effect Is this a current diagnosis for this admission?: Yes (7) Tobacco dependency Is this a current diagnosis for this admission?: YesPlan: Will continue when necessary nicotine patch (8) DVT prophylaxis Is this a current diagnosis for this admission?: YesPlan: Continue subcutaneous heparin - Time Time Spent with patient: on this visit including assessment, plan, physical examination, family meeting and patient education is 25 minutes. Time Spent with patient: 25-34 minutes Medications reviewed and adjusted accordingly: Yes Anticipated discharge: Home Within: within 24 hours Disposition: The patient is a full code. Pending patient's symptomatology and diagnostic findings will reevaluate in the a.m.
[2016-09-01] MEDS: CARVEDILOL 12.5 MG TABLET PO SCH (22:03)
[2016-09-02 04:41] LABS: ABSOLUTE EOSINOPHILS # (AUTO) 0.1 10^3/uL (0.0-0.6); ABSOLUTE LYMPHOCYTES (AUTO) 1.2 10^3/uL (0.5-4.7); ABSOLUTE MONOCYTES (AUTO) 0.7 10^3/uL (0.1-1.4); ABSOLUTE NEUT (AUTO) 7.4 10^3/uL (1.7-8.2); BASOPHILS % (AUTO) 0.4 % (0-2); EOSINOPHILS % (AUTO) 1.1 % (0-6); HEMATOCRIT 40.5 % (37.9-51.0); HEMOGLOBIN 13.2 g/dL (13.5-17.0); HGB HCT DIFFERENCE -0.9; MEAN CORPUSCULAR HEMOGLOBIN 32.6 pg (27.0-33.4); MEAN CORPUSCULAR HGB CONC 32.6 g/dL (32.0-36.0); MEAN CORPUSCULAR VOLUME 100 fl (80-97); MONOCYTES % (AUTO) 7.2 % (3-13); RED BLOOD COUNT 4.05 10^6/uL (4.35-5.55); RED CELL DISTRIBUTION WIDTH 13.8 % (11.5-14.0); SEGMENTED NEUTROPHILS % (AUTO) 78.3 % (42-78); WHITE BLOOD COUNT 9.5 10^3/uL (4.0-10.5)
[2016-09-02 05:08] LABS: ALANINE AMINOTRANSFERASE 87 U/L (21-72); ALBUMIN 2.6 g/dL (3.5-5.0); ALKALINE PHOSPHATASE 238 U/L (38-126); ANION GAP 12 (5-19); ASPARTATE AMINO TRANSFERASE 37 U/L (17-59); BILIRUBIN,TOTAL 0.4 mg/dL (0.2-1.3); BLOOD UREA NITROGEN 17 mg/dL (7-20); CALCIUM 8.4 mg/dL (8.4-10.2); CARBON DIOXIDE 27 mmol/L (22-30); CHLORIDE 103 mmol/L (98-107); CREATININE RESULT 1.25 mg/dL (0.52-1.25); GLUCOSE 81 mg/dL (75-110); LIPASE 297.3 U/L (23-300); POTASSIUM 3.4 mmol/L (3.6-5.0); SODIUM 141.6 mmol/L (137-145); TOTAL PROTEIN 4.9 g/dL (6.3-8.2)
[2016-09-02] MEDS: CIPROFLOXACIN 400 MG/D5W RTU 400 MG/200 ML RTUPB IV SCH (05:21)
[2016-09-02] MEDS: PANTOPRAZOLE SODIUM 40 MG VIAL IV SCH (05:22)
[2016-09-02] MEDS: HEPARIN SOD (PORCINE) 5,000 UNIT/ML 1 ML SYRINGE SUBCUT SCH (05:22)
[2016-09-02] MEDS: METRONIDAZOLE 500 MG/NS RTU 100 ML IV SCH (06:43)
--- NOTE | 2016-09-02 08:37 | PDOC DISCHARGE SUMMARY ---
General - Admit/Disc Date/PCP Admission Date/Primary Care Provider: 08/30/16 14:27 Discharge Date: 09/02/16 - Discharge Diagnosis (1) Acute pancreatitis Is this a current diagnosis for this admission?: Yes (2) Alcohol dependency Is this a current diagnosis for this admission?: Yes (3) Gallstones Is this a current diagnosis for this admission?: Yes (4) Abnormal LFTs Is this a current diagnosis for this admission?: Yes (5) Abdominal aortic aneurysm (AAA) 3.0 cm to 5.5 cm in diameter in male Is this a current diagnosis for this admission?: YesSummary: Incidental finding. 4.3 centimeters. The patient is to follow-up with Dr. Burrell in [place], [place] (6) Abnormal magnetic resonance cholangiopancreatography (MRCP) Is this a current diagnosis for this admission?: YesSummary: Follow-up with Dr. Richter in [place], [place] for endoscopic ultrasound (7) COPD (chronic obstructive pulmonary disease) Is this a current diagnosis for this admission?: Yes (8) Old cerebrovascular accident without late effect Is this a current diagnosis for this admission?: Yes (9) Tobacco dependency Is this a current diagnosis for this admission?: Yes (10) DVT prophylaxis Is this a current diagnosis for this admission?: Yes - Additional Information Resuscitation Status: Full Code Discharge Diet: As Tolerated, Cardiac Discharge Activity: Activity As Tolerated Home Medications: Albuterol Sulfate [Ventolin Hfa] 2 puff IH Q4HP PRN 08/30/16 Carvedilol 50 mg PO Q12 08/30/16 Clopidogrel Bisulfate [Clopidogrel] 75 mg PO DAILY 08/30/16 Lisinopril 40 mg PO DAILY 08/30/16 Pravastatin Sodium [Pravachol] 40 mg PO QHS 08/30/16 History of Present Illness Patient complains of: Nausea and vomiting History of Present Illness: ELGIN OLIVERA is a 66 year old male with history of COPD, not on home oxygen, left-sided CVA with no residual weakness and prior heavy alcohol abuse. The patient presented to [facility] ED this afternoon with complaints of nausea vomiting and worsening of abdominal pain for the last 2 weeks. The patient stated he was seen by his primary care provider approximately one week ago for the same complaint. He had lab work drawn and no change in medications. He is unaware of what the lab work revealed. Continues to have worsening epigastric pain, anorexia, and vomiting. He denies any diarrhea. Had one normal bowel movement 2 days ago which was formed, he denies any acholic stools. He states his urine has become darker he has noticed. He states he has lost approximately 20 pounds in the last 2 weeks. He states he normally drinks 1-2 cocktails per night. He has been unable to drink or smoke the last several days because of feeling so poorly. He describes pain as sharp and stabbing in nature. He has not found anything to relieve the pain. His friend convinced him to come to the ED. Hospital Course Hospital Course: The patient was admitted to a continuous telemetry unit. The patient maintained NPO status and aggressively hydrated. The patient's lipase improved and low fat diet advanced accordingly without an increase in lipase. The patient's symptoms of abdominal pain, nausea, or vomiting were managed with appropriate analgesia and/or antiemetic. The patient is now able to maintain hydration. The patient was noted to have acute renal failure given his dehydration but this did correct with hydration. She was noted to have elevated liver enzymes except for his bilirubin. Given this the patient had a MRCP and findings were suggestive of a 1 centimeter common bile duct, intra-and extrahepatic ductal dilation. The case was discussed with Dr. Padgett gastroenterology at [facility]. The patient's symptoms completely resolved and labs normalized was felt the patient would not benefit from ERCP at this time. However given Findings of possible pancreatic pseudocyst is recommended that the patient have an endoscopic ultrasound. This will be arranged with Dr. Richter at [facility]. His additional finding on MRCP was suggestive of a 4.3 centimeter AAA. The case was discussed with Dr. Burrell with vascular surgery and [facility] and recommendations were made for outpatient follow-up in a few weeks. At the time of discharge the patient is completely asymptomatic is tolerating his diet and is quite eager for discharge. Physical Exam Vital Signs: Temp Pulse Resp BP Pulse Ox 98.1 F 72 19 170/90 H 97 09/02/16 07:20 09/02/16 08:02 09/02/16 07:20 09/02/16 07:20 09/02/16 07:20 Intake & Output 08/31/16 09/01/16 09/02/16 23:59 23:59 23:59 Intake Total 9882 3519 1013 Output Total 850 400 Balance 1814 3939 1013 Weight 74.5 kg 76.9 kg General appearance: PRESENT: no acute distress, cooperative, well-developed, well-nourished Head exam: PRESENT: atraumatic, normocephalic Eye exam: PRESENT: conjunctiva pink, EOMI, PERRLA. ABSENT: scleral icterus Ear exam: PRESENT: normal external ear exam Mouth exam: PRESENT: moist, tongue midline Neck exam: ABSENT: carotid bruit, JVD, lymphadenopathy, thyromegaly Respiratory exam: PRESENT: clear to auscultation david, symmetrical, unlabored. ABSENT: rales, rhonchi, tachypnea, wheezes Cardiovascular exam: PRESENT: RRR. ABSENT: diastolic murmur, rubs, systolic murmur Pulses: PRESENT: normal dorsalis pedis pul Vascular exam: PRESENT: normal capillary refill GI/Abdominal exam: PRESENT: normal bowel sounds, soft. ABSENT: distended, guarding, mass, organolmegaly, rebound, tenderness Rectal exam: PRESENT: deferred Extremities exam: PRESENT: full ROM. ABSENT: calf tenderness, clubbing, pedal edema Neurological exam: PRESENT: alert, awake, oriented to person, oriented to place , oriented to time, oriented to situation, CN II-XII grossly intact. ABSENT: motor sensory deficit Psychiatric exam: PRESENT: appropriate affect, normal mood. ABSENT: homicidal ideation, suicidal ideation Skin exam: PRESENT: dry, intact, warm. ABSENT: cyanosis, rash Results Laboratory Results: Labs- Last Values WBC 9.5 10^3/uL (4.0-10.5) 09/02/16 03:37 RBC 4.05 10^6/uL (4.35-5.55) L 09/02/16 03:37 Hgb 13.2 g/dL (13.5-17.0) L 09/02/16 03:37 Hct 40.5 % (37.9-51.0) 09/02/16 03:37 MCV 100 fl (80-97) H 09/02/16 03:37 MCH 32.6 pg (27.0-33.4) 09/02/16 03:37 MCHC 32.6 g/dL (32.0-36.0) 09/02/16 03:37 RDW 13.8 % (11.5-14.0) 09/02/16 03:37 Plt Count 162 10^3/uL (150-450) 09/02/16 03:37 Seg Neutrophils % 78.3 % (42-78) H 09/02/16 03:37 Lymphocytes % 13.0 % (13-45) 09/02/16 03:37 Monocytes % 7.2 % (3-13) 09/02/16 03:37 Eosinophils % 1.1 % (0-6) 09/02/16 03:37 Basophils % 0.4 % (0-2) 09/02/16 03:37 Absolute Neutrophils 7.4 10^3/uL (1.7-8.2) 09/02/16 03:37 Absolute Lymphocytes 1.2 10^3/uL (0.5-4.7) 09/02/16 03:37 Absolute Monocytes 0.7 10^3/uL (0.1-1.4) 09/02/16 03:37 Absolute Eosinophils 0.1 10^3/uL (0.0-0.6) 09/02/16 03:37 Absolute Basophils 0.0 10^3/uL (0.0-0.2) 09/02/16 03:37 Sodium 141.6 mmol/L (137-145) 09/02/16 03:37 Potassium 3.4 mmol/L (3.6-5.0) L 09/02/16 03:37 Chloride 103 mmol/L (98-107) 09/02/16 03:37 Carbon Dioxide 27 mmol/L (22-30) 09/02/16 03:37 Anion Gap 12 (5-19) 09/02/16 03:37 BUN 17 mg/dL (7-20) 09/02/16 03:37 Creatinine 1.25 mg/dL (0.52-1.25) 09/02/16 03:37 Est GFR ( Amer) > 60 (>60) 09/02/16 03:37 Est GFR (Non-Af Amer) 58 (>60) L 09/02/16 03:37 Glucose 81 mg/dL (75-110) 09/02/16 03:37 Calcium 8.4 mg/dL (8.4-10.2) 09/02/16 03:37 Phosphorus 3.3 mg/dL (2.5-4.5) 08/31/16 03:33 Magnesium 2.0 mg/dL (1.6-2.3) 08/31/16 03:33 Total Bilirubin 0.4 mg/dL (0.2-1.3) 09/02/16 03:37 Direct Bilirubin 0.0 mg/dL (0.0-0.3) 09/02/16 03:37 AST 37 U/L (17-59) 09/02/16 03:37 ALT 87 U/L (21-72) H 09/02/16 03:37 Alkaline Phosphatase 238 U/L (38-126) H 09/02/16 03:37 Creatine Kinase 42 U/L (55-170) L 08/30/16 10:34 CK-MB (CK-2) 0.68 ng/mL (<4.55) 08/30/16 10:34 Total Protein 4.9 g/dL (6.3-8.2) L 09/02/16 03:37 Albumin 2.6 g/dL (3.5-5.0) L 09/02/16 03:37 Triglycerides 81 mg/dL (<150) 08/31/16 03:33 Cholesterol 96.95 mg/dL (0-200) 08/31/16 03:33 LDL Cholesterol Direct 55 mg/dL (<100) 08/31/16 03:33 VLDL Cholesterol 16.0 mg/dL (10-31) 08/31/16 03:33 HDL Cholesterol 24 mg/dL (>40) L 08/31/16 03:33 Lipase 297.3 U/L (23-300) 09/02/16 03:37 Impressions: Chest X-Ray 08/30/16 10:35 IMPRESSION: Overexpansion the lung sev[place] concerning for COPD. No developing infiltrates. Abdomen Ultrasound 08/30/16 11:30 IMPRESSION: Cholelithiasis. Dilated common bile duct 8.6 mm. Abdomen MRI 08/31/16 00:00 IMPRESSION: 1. Cholelithiasis. Intra and extrahepatic ductal distention. Common duct diameter measures 1.0 cm. 2. Nonspecific prominence of the pancreatic head and duodenum based on limited imaging ; cannot exclude neoplasm. 3. Prominence of the thoracoabdominal aorta measuring up to 4.3- cm in diameter. Qualifiers PATEINT BEING DISCHARGED WITH ANY OF THE FOLLOWING DIAGNOSIS?: No Plan Discharge Plan: The patient is to followup with their primary care provider, within one week for hospital followup regarding pancreatitis. The patient will be referred to gastroenterology, Dr. Richter, for endoscopic ultrasound. The patient will be referred to Dr. Burrell, vascular surgery, for abdominal aortic aneurysm. Time Spent: Greater than 30 Minutes - Time spent on this discharge including assessment, plan, patient education, and multispecialty collaboration is 45 minutes.
[2016-09-02] MEDS ORDERED: POTASSIUM CHLORIDE 10 MEQ TABLET.SA PO ONE (09:15)
[2016-09-02] MEDS: NICOTINE 21 MG/24 HR PATCH.TD24 TD SCH (09:18)
[2016-09-02] MEDS: CARVEDILOL 12.5 MG TABLET PO SCH (09:18)
[2016-09-02] MEDS ORDERED: (PENDING PHARMACY ID) (Lisinopril [Lisinopril] 40 MG) PO SCH (10:00)
[2016-09-02 11:07] VITALS: BP 140/76
== END 2016-09-02 11:28 | disposition home or self-care (01) | DRG 439 ==
LOC: ER 10:19 → EH 14:27 → UNDOADMIN 15:26 → EH 15:26 → 3N 08-31 00:05
PROVIDERS: ADMIT Family Medicine; ATTEND Family Medicine
DX: K85.20 Alcohol induced acute pancreatitis without necrosis or infection (principal); N17.9 Acute kidney failure, unspecified; J44.9 Chronic obstructive pulmonary disease, unspecified; K80.80 Other cholelithiasis without obstruction; F10.20 Alcohol dependence, uncomplicated; I71.4 Abdominal aortic aneurysm, without rupture; E86.0 Dehydration; F17.210 Nicotine dependence, cigarettes, uncomplicated; Y90.9 Presence of alcohol in blood, level not specified; Z86.73 Personal history of transient ischemic attack (TIA), and cerebral infarction without residual deficits; Z88.0 Allergy status to penicillin; Z88.5 Allergy status to narcotic agent; Z88.6 Allergy status to analgesic agent; Z72.89 Other problems related to lifestyle
CPT/HCPCS: 36415; 71020; 74181; 76705; 80053; 80061; 82550; 82553; 83690; 83735; 84100; 85025; 86301; 93005; 93010; 96361; 96374; 96375; 99285; J0744; J1170; J1644; J2270; J2405; J7030; S0028; S0164